=== PATIENT | female | born 1955 | race Caucasian/White ===

== ENCOUNTER → 2017-04-26 | Outpatient (CLI) | payer OTHER ==
--- NOTE | 2017-04-26 09:57 | DIAGNOSTIC IMAGING REPORT ---
PET/CT SKULL-THIGH CLINICAL HISTORY: LUNG MASS COMPARISON STUDY: No previous studies for comparison. FINDINGS: The patient was injected with 50.6 mCi of F 18 labeled FDG. Findings standard induction phase, PET/CT scanning was performed from the skull base to the upper thigh region. Activity within the neck is felt to be physiologic. There is intensely FDG avid right hilar mass with secondary narrowing of the right upper lobe bronchus, and postobstructive right upper lobe consolidation. On the CT scan, the mass is difficult to separate from the postobstructive consolidation. The mass is estimated to measure 4.5 cm. The mass has an SUV maximum of 10.8. There is a 1 cm precarinal lymph node with SUV maximum of 3.4. There is a right retrocrural fluid density structure. This is of doubtful clinical significance. There are no FDG avid adrenal masses. There are no FDG avid hepatic masses. Within the abdomen and pelvis, there is physiologic urinary tract and bowel activity. There are no FDG avid skeletal lesions. IMPRESSION: 1. Intensely FDG avid 4.5 cm right hilar mass with secondary narrowing of the right upper lobe bronchus and postobstructive right upper lobe consolidation. The mass has an SUV maximum of 10.8. This lesion should be presumed neoplastic unless proven otherwise. 2. No PET/CT evidence of distant metastatic disease Electronically signed by: Fabrice Her M.D. 04/26/2017 9:56 AM Dictated Date/Time: 04/26/2017 9:47 AM
== END | disposition home or self-care (01) ==
LOC: C.PET 06:30
PROVIDERS: ATTEND Internal Medicine Pulmonary Disease
DX: R91.1 Solitary pulmonary nodule (principal)